=== PATIENT | male | born 1955 | race Hispanic/Latino ===

== ENCOUNTER 2017-08-19 08:53 | Day surgery (SDC) | payer MEDICAID, OTHER ==
[2017-08-16 12:40] VITALS: BMI 33.5
[2017-08-19] MEDS ORDERED: Midazolam 2 MG/2 ML VIAL ONE ×3 (10:36→10:49)
[2017-08-19] MEDS ORDERED: oxyCODONE 30 mg Immediate Release Tab PO ONE (15:45)
[2017-08-19] MEDS ORDERED: Oxycodone/Acetaminophen 5/325 mg Tab ONE (15:52)
--- NOTE | 2017-08-19 20:47 | CARDCATH ---
PROCEDURE DATE: 08/19/2017 INDICATIONS: Mr. Dilshad Shin is a 62-year-old male with history of hypertension, diabetes, and hyperlipidemia, admitted to [facility] with gangrene and cellulitis of the right lower extremity. The patient underwent arterial duplex, which showed monophasic flow with possible gradient suggestive of peripheral vascular disease and multiple level stenosis, therefore, brought to the labor relations representative for further evaluation and treatment. PROCEDURES PERFORMED: Distal abdominal aortogram with bilateral iliac runoff, selective bilateral iliofemoral angiogram with runoff, 5-Malian left femoral arterial access, and manual pressure for hemostasis. TECHNIQUES OF PROCEDURE: After obtaining informed consent, the patient was brought to the cardiac catheterization in post-absorptive, non-sedated state. The patient was prepped and draped in the usual sterile fashion. A 2% lidocaine was used for infiltration of anesthesia. Using modified Seldinger technique, 5-Malian sheath was introduced into the left femoral artery and left iliofemoral angiogram with runoff was performed. Digital subtraction angiographic views below the knee and the left foot profile was obtained. Subsequently, over a Glidewire, Contra catheter was advanced into the abdominal aorta and abdominal aortogram with bilateral iliac runoff was performed. Subsequently, Contra was advanced across the aortoiliac bifurcation to the right common femoral artery. Digital subtraction angiographic view of the right SFA, right popliteal, right below the knee, and the right foot profile was obtained. Angiographic findings of the left lower extremity, left common iliac and external iliac patent. Profunda femoris patent. SFA, mild disease. Popliteal artery patent. Three-vessel runoff below the knee. Distal circulation has mild diffuse disease, consider microcirculatory disease. Right lower extremity shows right common iliac and external iliac patent. Right SFA and profunda femoris, mild disease. Three-vessel runoff below the knee shows small vessel disease suspicious for diabetic vascular disease. IMPRESSION: Bilateral microvascular disease. RECOMMENDATIONS: Aggressive medical management, risk factor modification. Thank you for letting me participate in the care of your patient. Efrain Turner MD
== END 2017-08-19 15:50 | disposition short-term general hospital (02) ==
LOC: C.CATHLAB 08:53
PROVIDERS: ATTEND Internal Medicine Interventional Cardiology
DX: E11.52 Type 2 diabetes mellitus with diabetic peripheral angiopathy with gangrene (principal); I96 Gangrene, not elsewhere classified; Z79.4 Long term (current) use of insulin; L03.115 Cellulitis of right lower limb; I10 Essential (primary) hypertension; E78.5 Hyperlipidemia, unspecified
CPT/HCPCS: 36245; J1644; J2250; J3010